=== PATIENT | female | born 1945 | race Hispanic/Latino ===

== ENCOUNTER 2024-03-12 14:42 | Emergency (ER) | payer OTHER ==
[2024-03-12] MEDS ORDERED: ONDANSETRON 4 MG/2 ML VIAL ONE (15:13)
[2024-03-12] MEDS ORDERED: NA CHLORIDE 0.9% 1,000 ML ONE (15:13)
[2024-03-12 15:44] LABS: Absolute Basophils 0.1 K/uL (0-0.5); Absolute Eosinophils 0.3 K/uL (0-0.5); Absolute Lymphocytes (CBC) 1.1 K/uL (0.7-4.9); Absolute Monocytes 0.5 K/uL (0.1-1.3); Absolute Neutrophil 7.2 K/uL (1.8-8.0); Basophils % 0.6 % (0-1.3); Eosinophils % 2.8 % (0-4.4); Hematocrit 35.2 % (36.0-45.0); Hemoglobin 11.9 g/dL (12.0-15.0); Lymphocytes % 12.2 % (15.3-44.8); MCHC 33.8 g/dL (32.0-36.0); MCV 88.8 fL (80-100); MPV 8.1 fL (7.6-11.3); Monocytes % 5.5 % (3.3-12.3); Neutrophils % 78.9 % (41.7-73.7); Nucleated Red Blood Cells % 0.1 % (0-0); Platelets 338 thou/uL (152-406); RBC Red Blood Cell Count 3.96 M/uL (3.86-4.86); Red Cell Distribution Width 13.5 % (12.1-15.2)
[2024-03-12 15:55] LABS: PT Prothrombin Time 12.4 SECONDS (9.4-12.5)
[2024-03-12 15:56] LABS: Protime INR 1.11
[2024-03-12 16:00] LABS: ALT/SGPT 18 U/L (13-56); AST/SGOT 17 U/L (15-37); Albumin 3.8 g/dL (3.4-5.0); Alkaline Phosphatase 86 U/L (45-117); Anion Gap 12.3 mEq/L (5.0-15.0); BUN Blood Urea Nitrogen 20 mg/dL (7-18); Bicarbonate 24 mEq/L (21-32); Bilirubin Total 0.3 mg/dL (0.2-1.0); Creatine Phosphokinase 36 U/L (26-192); Globulin 3.9 g/dL (2.3-3.5); Glomerular Filtration Rate 38 ml/min (=/>90); Glucose Level 102 mg/dL (74-106); Lipase 57 U/L (13-75); Magnesium 1.6 mg/dL (1.6-2.4); NT PRO-BNP 349 pg/mL (<450); Potassium 4.3 mEq/L (3.5-5.1); Protein, Total 7.7 g/dL (6.4-8.2); Sodium Level 132 mEq/L (136-145); Troponin High Sensitivity 5.5 pg/mL (<58.9)
[2024-03-12 16:01] LABS: Bilirubin Direct < 0.2 mg/dL (0-0.2); Bilirubin Indirect, Calculated 0.1 mg/dL (0.2-0.8)
[2024-03-12] MEDS ORDERED: FAMOTIDINE 20 MG/2 ML VIAL IV ONE (16:02)
[2024-03-12 16:12] LABS: SARS-CoV-2 Antigen CONTROL BLUE LINE VIS/BG OK; SARS-CoV-2 Antigen Rapid Res Negative (Negative)
--- NOTE | 2024-03-12 16:18 | RAD REPORT ---
EXAM DESCRIPTION: RAD - Chest Single View - 03/12/2024 4:06 pm CLINICAL HISTORY: nausea vomiting COMPARISON: No comparisons FINDINGS: Lines: None. Lungs: No evidence of edema or pneumonia. Pleural: No significant pleural effusions or pneumothorax. Cardiac: The heart size is within normal limits. Mediastinum: Within normal limits. Bones: No acute fractures. Other: None IMPRESSION: No acute cardiopulmonary disease.
--- NOTE | 2024-03-12 18:30 | RAD REPORT ---
EXAM DESCRIPTION: CTAbdomen Pelvis Wo Contrast - 03/12/2024 6:05 pm CLINICAL HISTORY: ABD PAIN COMPARISON: CT ABD PELVIS W CONTRAST dated 03/04/2015 TECHNIQUE: CT of the abdomen and pelvis was performed. All CT scans are performed using dose optimization technique as appropriate and may include automated exposure control or mA/KV adjustment according to patient size. FINDINGS: Lower chest: Dependent atelectasis . Coronary calcifications. Aortic valve calcifications. Mild circumferential thickened distal esophagus. Liver: No acute abnormality or suspicious lesions. Biliary: No biliary ductal dilatation. Stomach: No significant focal abnormality. Duodenum: No significant focal abnormality. Pancreas: No significant abnormality. Spleen: No significant abnormality. Adrenal: No suspicious lesions. Kidney/ureter: No hydronephrosis. No renal calculi. Retroperitoneum: No retroperitoneal adenopathy. Vascular: No aneurysm. Atherosclerotic changes. Bowel: No significant focal abnormality. Normal appendix. Peritoneum: No ascites or free air. Tiny fat containing umbilical hernia. Bladder: Grossly unremarkable. Reproductive: Small calcified uterine fibroid. Bones: No acute fracture. Multilevel degenerative changes are present in the spine. Other: n/a IMPRESSION: No acute intra-abdominal or pelvic finding.
--- NOTE | 2024-03-12 18:33 | EDPHYS ---
Physician Documentation [facility] Name: Arin Mena Age: 78 yrs Sex: Female : 1945 Arrival Date: 03/12/2024 Time: 14:42 Bed 7 Private MD: ED Physician Hilario Welch HPI: 03/12 15:57 This 78 yrs old Female presents to ER via EMS with complaints of brianna Nausea/Vomiting. 15:57 The patient presents to the emergency department with nausea, vomiting, that is brianna intermittent. Onset: The symptoms/episode began/occurred just prior to arrival. Possible causes: unknown. The symptoms are aggravated by nothing. The symptoms are alleviated by nothing. Associated signs and symptoms: Pertinent positives: abdominal pain, nausea, vomiting. Severity of symptoms: At their worst the symptoms were mild in the emergency department the symptoms have improved mildly. The patient has experienced similar episodes in the past, a few times. Historical: - Allergies: 14:52 No Known Allergies; dd2 - Home Meds: 14:52 Metformin Oral [Active]; memantine oral [Active]; dd2 - PMHx: 14:52 Diabetes mellitus; Hypertensive disorder; Dementia; Hypercholesterolemia; Coronary dd2 atherosclerosis; - PSHx: 14:52 CARDIAC STENT; dd2 - Immunization history:: Adult Immunizations unknown. - Infectious Disease History:: Denies. - Social history:: Smoking status: Patient denies any tobacco usage or history of. ROS: 15:58 Constitutional: Negative for fever, chills, and weight loss, Eyes: Negative for injury, brianna pain, redness, and discharge, ENT: Negative for injury, pain, and discharge, Neck: Negative for injury, pain, and swelling, Cardiovascular: Negative for chest pain, palpitations, and edema, Respiratory: Negative for shortness of breath, cough, wheezing, and pleuritic chest pain, Back: Negative for injury and pain, : Negative for injury, bleeding, discharge, and swelling, MS/Extremity: Negative for injury and deformity, Skin: Negative for injury, rash, and discoloration, Neuro: Negative for headache, weakness, numbness, tingling, and seizure, Psych: Negative for depression, anxiety, suicide ideation, homicidal ideation, and hallucinations, Allergy/Immunology: Negative for hives, rash, and allergies, Endocrine: Negative for neck swelling, polydipsia, polyuria, polyphagia, and marked weight changes, Hematologic/Lymphatic: Negative for swollen nodes, abnormal bleeding, and unusual bruising, 15:58 Abdomen/GI: Positive for abdominal pain, nausea and vomiting, Exam: 15:58 Constitutional: This is a well developed, well nourished patient who is awake, alert, brianna and in no acute distress. Head/Face: Normocephalic, atraumatic. Eyes: Pupils equal round and reactive to light, extra-ocular motions intact. Lids and lashes normal. Conjunctiva and sclera are non-icteric and not injected. Cornea within normal limits. Periorbital areas with no swelling, redness, or edema. ENT: Nares patent. No nasal discharge, no septal abnormalities noted. Tympanic membranes are normal and external auditory canals are clear. Oropharynx with no redness, swelling, or masses, exudates, or evidence of obstruction, uvula midline. Mucous membranes moist. Neck: Trachea midline, no thyromegaly or masses palpated, and no cervical lymphadenopathy. Supple, full range of motion without nuchal rigidity, or vertebral point tenderness. No Meningismus. Chest/axilla: Normal chest wall appearance and motion. Nontender with no deformity. No lesions are appreciated. Cardiovascular: Regular rate and rhythm with a normal S1 and S2. No gallops, murmurs, or rubs. Normal PMI, no JVD. No pulse deficits. Respiratory: Lungs have equal breath sounds bilaterally, clear to auscultation and percussion. No rales, rhonchi or wheezes noted. No increased work of breathing, no retractions or nasal flaring. Abdomen/GI: Soft, non-tender, with normal bowel sounds. No distension or tympany. No guarding or rebound. No evidence of tenderness throughout. Back: No spinal tenderness. No costovertebral tenderness. Full range of motion. Female : Normal external genitalia. Skin: Warm, dry with normal turgor. Normal color with no rashes, no lesions, and no evidence of cellulitis. MS/ Extremity: Pulses equal, no cyanosis. Neurovascular intact. Full, normal range of motion. Neuro: Awake and alert, GCS 15, oriented to person, place, time, and situation. Cranial nerves II-XII grossly intact. Motor strength 5/5 in all extremities. Sensory grossly intact. Cerebellar exam normal. Normal gait. Psych: Awake, alert, with orientation to person, place and time. Behavior, mood, and affect are within normal limits. 15:58 ECG was reviewed by the Attending Physician. Vital Signs: 14:50 BP 160 / 80; Pulse 75; Resp 18; Temp 97.9; Pulse Ox 98% ; dd2 16:00 BP 153 / 74; Pulse 80; Resp 15; Pulse Ox 99% ; dd2 17:00 BP 138 / 63; Pulse 80; Resp 16; Pulse Ox 99% ; ko1 18:00 BP 139 / 66; Pulse 78; Resp 18; Pulse Ox 98% ; ko1 MDM: 14:49 Patient medically screened. brianna 15:59 Differential diagnosis: Nonspecific abd pain, gastritis, cholecystitis, pancreatitis, brianna appendicitis, diverticulitis, viral gastroenteritis, gastroenteritis. Data reviewed: vital signs, nurses notes, EMS record, lab test result(s), EKG, radiologic studies, CT scan, plain films. Consideration of Admission/Observation Escalation of care including admission/observation considered. I considered the following discharge prescriptions or medication management in the emergency department Medications were administered in the Emergency Department. See MAR. Independent interpretation of the following test(s) in the Emergency Department EKG: See my EKG interpretation above. Test considered but Not performed: Ultrasound NO AND USG. Care significantly affected by the following chronic conditions: Diabetes, Hypertension, Obesity, CAD, DEMENTIA, HIGH CHOLESTEROL. 03/12 15:39 Order name: Basic Metabolic Panel; Complete Time: 17:10 EDMS 03/12 15:39 Order name: Liver (Hepatic) Function; Complete Time: 17:10 EDMS 03/12 15:39 Order name: Creatine Phosphokinase; Complete Time: 17:10 EDMS 03/12 15:39 Order name: Troponin High Sensitivity; Complete Time: 17:10 EDMS 03/12 15:39 Order name: NT PRO-BNP; Complete Time: 17:10 EDMS 03/12 15:39 Order name: Magnesium; Complete Time: 17:10 EDMS 03/12 15:39 Order name: Lipase; Complete Time: 17:10 EDMS 03/12 15:39 Order name: SARS-COV-2 Antigen Rapid; Complete Time: 17:10 EDMS 03/12 15:39 Order name: CBC with Automated Diff; Complete Time: 15:48 EDMS 03/12 15:40 Order name: Protime (+INR); Complete Time: 17:10 [facility] 08 15:40 Order name: Influenza Screen (A ; Complete Time: 18:06 [facility] 08/ 15:15 Order name: Chest Single View; Complete Time: 17:10 [facility] 08/06 15:49 Order name: CT Abd/Pelvis - Without Contrast; Complete Time: 18:32 [facility] 08 15:03 Order name: Cardiac monitoring; Complete Time: 15:08 [facility] 03/12 15:03 Order name: EKG - Nurse/Tech; Complete Time: 16:15 [facility] 03/12 15:03 Order name: IV Saline Lock; Complete Time: 15:08 [facility] 08 15:03 Order name: Labs collected and sent; Complete Time: 15:08 [facility] 08 15:03 Order name: O2 Per Protocol; Complete Time: 15:07 [facility] 08 15:03 Order name: O2 Sat Monitoring; Complete Time: 15:07 [facility] 03/12 17:11 Order name: PO challenge; Complete Time: 18:46 [facility] 03/12 18:13 Order name: Misc. Order: get ua please; Complete Time: 18:46 [facility] EC:58 Rate is 83 beats/min. Rhythm is regular. QRS Hudgins is Normal. GA interval is normal. QRS brianna interval is normal. QT interval is normal. No Q waves. T waves are Normal. No ST changes noted. Clinical impression: NSR w/ Non-specific ST/T Changes and No evidence of ischemia. Interpreted by me. Reviewed by me. Administered Medications: 15:33 Drug: NS 0.9% IV 1000 ml IV at 1 bolus Per protocol; 1000 mL bolus Route: IV; Rate: 1 dd2 bolus; Site: right antecubital; 15:48 Follow up: Response: No adverse reaction dd2 17:00 Follow up: Response: No adverse reaction; IV Status: Completed infusion; IV Intake: ko1 1000ml 15:33 Drug: Ondansetron IVP 4 mg IVP once; over 2 minutes Route: IVP; Site: right antecubital;dd2 15:48 Follow up: Response: No adverse reaction dd2 16:12 Drug: Famotidine IVP 20 mg IVP once; dilute with 10 mL 0.9% NaCl; give over 2 minutes dd2 Route: IVP; Site: right antecubital; 16:27 Follow up: Response: No adverse reaction dd2 16:27 Follow up: Response: No adverse reaction ko1 Disposition Summary: 03/12/24 18:32 Discharge Ordered Notes: Location: Home brianna Problem: new brianna Symptoms: have improved brianna Condition: Stable brianna Diagnosis - Vomiting brianna - Anxiety disorder, unspecified brianna - Gastro-esophageal reflux disease with esophagitis brianna Followup: brianna - With: Private Physician - When: 2 - 3 days - Reason: Recheck today's complaints, Continuance of care, Re-evaluation by your physician Discharge Instructions: - Discharge Summary Sheet brianna - Abdominal Pain, Adult brianna - Esophagitis brianna - Gastroesophageal Reflux Disease, Adult brianna - Vomiting, Adult brianna - Managing Anxiety, Adult brianna Forms: - Medication Reconciliation Form brianna - Antibiotic Education brianna - Prescription Opioid Use brianna - Patient Portal Instructions brianna - Leadership Thank You Letter [facility] Prescriptions: - ondansetron 4 mg Oral Tablet,disintegrating - take 1 tablet ORAL route every 8-12 hours for 5 days as needed for nausea and brianna vomiting; 20 tablet; Refills: 0, Product Selection Permitted - Pepcid 20 mg Oral tablet - take 1 tablet ORAL route every 12 hours for 21 days; 42 tablet; Refills: 0, brianna Product Selection Permitted Signatures: Dispatcher [employer] EDHilario Siddiqui MD MD cha DAVIS, DIANA, RN RN dd2 Krista Camarena RN ko1 Corrections: (The following items were deleted from the chart) 17:05 17:05 SARS-COV-2 Antigen Rapid+I.LAB.BRZ ordered. EDMS EDMS 17:05 17:05 Chest Single View+RAD.RAD.BRZ ordered. EDMS EDMS 17:06 17:06 Abdomen Pelvis Wo Con+CT.RAD.BRZ ordered. EDMS EDMS 17:36 17:05 CBC+H.LAB.BRZ ordered. EDMS EDMS 17:36 17:05 Urinalysis+U.LAB.BRZ ordered. EDMS EDMS 17:37 17:05 BASIC METABOLIC PANEL+C.LAB.BRZ ordered. EDMS EDMS 17:37 17:05 HEPATIC FUNCTION+C.LAB.BRZ ordered. EDMS EDMS 17:37 17:05 MAGNESIUM+C.LAB.BRZ ordered. EDMS EDMS 17:37 17:05 PROBNP+C.LAB.BRZ ordered. EDMS EDMS 17:37 17:05 PROTIME (+INR)+COAG.LAB.BRZ ordered. EDMS EDMS 17:37 17:05 Troponin High Sensitivity+C.LAB.BRZ ordered. EDMS EDMS 17:37 17:05 CREATINE PHOSPHOKINASE+C.LAB.BRZ ordered. EDMS EDMS 17:37 17:05 LIPASE+C.LAB.BRZ ordered. EDMS EDMS 17:38 17:05 Influenza Screen (A \T\ B)+BA.LAB.BRZ ordered. EDMS EDMS
--- NOTE | 2024-03-12 18:33 | ER ---
Nurse's Notes [facility] Name: Arin Mena Age: 78 yrs Sex: Female : 1945 Arrival Date: 03/12/2024 Time: 14:42 Bed 7 Private MD: Diagnosis: Vomiting;Anxiety disorder, unspecified;Gastro-esophageal reflux disease with esophagitis Presentation: 03/12 14:50 Chief complaint: EMS states: NAUSEA AND VOMITING AFTER STARTING ANTIBIOTIC. Coronavirus dd2 screen: At this time, the client does not indicate any symptoms associated with coronavirus-19. Ebola Screen: No symptoms or risks identified at this time. 14:50 Method Of Arrival: EMS: [facility] dd2 14:50 Initial Sepsis Screen: Does the patient meet any 2 criteria? No. Patient's initial dd2 sepsis screen is negative. Does the patient have a suspected source of infection? No. Patient's initial sepsis screen is negative. Risk Assessment: Do you want to hurt yourself or someone else? Patient reports no desire to harm self or others. Onset of symptoms was March 12, 2024. 14:50 Acuity: HARI 3 dd2 14:50 Care prior to arrival: Medication(s) given: zofran 4 mg, IV initiated. 18 GA, in the dd2 right antecubital area, Glucose check: 115. Triage Assessment: 14:52 General: Appears uncomfortable, Behavior is cooperative. Pain: Complains of pain in top dd2 of head. GI: Reports vomiting. 14:52 GI: Reports nausea. dd2 Historical: - Allergies: 14:52 No Known Allergies; dd2 - Home Meds: 14:52 Metformin Oral [Active]; memantine oral [Active]; dd2 - PMHx: 14:52 Diabetes mellitus; Hypertensive disorder; Dementia; Hypercholesterolemia; Coronary dd2 atherosclerosis; - PSHx: 14:52 CARDIAC STENT; dd2 - Immunization history:: Adult Immunizations unknown. - Infectious Disease History:: Denies. - Social history:: Smoking status: Patient denies any tobacco usage or history of. Screenin:00 [facility] ED Fall Risk Assessment (Adult) History of falling in the last 3 months, dd2 including since admission No falls in past 3 months (0 pts) Confusion or Disorientation Yes (5 pts) Intoxicated or Sedated No (0 pts) Impaired Gait No (0 pts) Mobility Assist Device Used No (0 pt) Altered Elimination No (0 pt) Score/Fall Risk Level 3 or more points = High Risk Oriented to surroundings, Maintained a safe environment, Educated pt \T\ family on fall prevention, incl call for assistance when getting out of bed, Assessed \T\ reinforced patient's understanding of fall precautions, Hourly rounding (assess needs \T\ fall precautionary measures) done. Abuse screen: Denies threats or abuse. Nutritional screening: No deficits noted. Tuberculosis screening: No symptoms or risk factors identified. Assessment: 16:00 General: Appears in no apparent distress. Behavior is calm, cooperative. Pain: Denies dd2 pain. Neuro: Oriented to person, place, situation. Cardiovascular: No deficits noted. Respiratory: No deficits noted. GI: Abdomen is non-distended, Bowel sounds present X 4 quads. Reports nausea, vomiting. : No deficits noted. EENT: No deficits noted. Derm: No deficits noted. Musculoskeletal: No deficits noted. Vital Signs: 14:50 BP 160 / 80; Pulse 75; Resp 18; Temp 97.9; Pulse Ox 98% ; dd2 16:00 BP 153 / 74; Pulse 80; Resp 15; Pulse Ox 99% ; dd2 17:00 BP 138 / 63; Pulse 80; Resp 16; Pulse Ox 99% ; ko1 18:00 BP 139 / 66; Pulse 78; Resp 18; Pulse Ox 98% ; ko1 ED Course: 14:49 Patient arrived in ED. dd2 14:49 Hilario Welch MD is Attending Physician. [facility] 14:50 ONEIDA HOLDEN RN is Primary Nurse. dd2 14:52 Triage completed. dd2 14:52 Arm band placed on right wrist. Patient placed in an exam room, on a stretcher, on dd2 pulse oximetry. 16:00 Patient has correct armband on for positive identification. Bed in low position. Call dd2 light in reach. Side rails up X2. Provided Education on: CALL LIGHT, MEDICATION, FALL RISK. 16:00 Client placed on continuous cardiac and pulse oximetry monitoring. NIBP monitoring dd2 applied. Door closed. Noise minimized. Warm blanket given. 16:00 No provider procedures requiring assistance completed. Initial lab(s) drawn, by me, dd2 sent to lab. EKG done, by ED staff, reviewed by Hilario Welch MD COVID swab sent to lab. Flu and/or RSV swab sent to lab. Maintain EMS IV. Dressing intact. Good blood return noted. Site clean \T\ dry. Gauge \T\ site: 18 G RAC. 16:07 Chest Single View In Process Unspecified. EDMS 16:16 Influenza Screen (A Sent. dd2 16:36 Cleaned of incontinence. Linen changed. ko1 18:07 CT Abd/Pelvis - Without Contrast In Process Unspecified. EDMS 18:44 IV discontinued, intact, bleeding controlled, No redness/swelling at site. Pressure ko1 dressing applied. Administered Medications: 15:33 Drug: NS 0.9% IV 1000 ml IV at 1 bolus Per protocol; 1000 mL bolus Route: IV; Rate: 1 dd2 bolus; Site: right antecubital; 15:48 Follow up: Response: No adverse reaction dd2 17:00 Follow up: Response: No adverse reaction; IV Status: Completed infusion; IV Intake: ko1 1000ml 15:33 Drug: Ondansetron IVP 4 mg IVP once; over 2 minutes Route: IVP; Site: right antecubital;dd2 15:48 Follow up: Response: No adverse reaction dd2 16:12 Drug: Famotidine IVP 20 mg IVP once; dilute with 10 mL 0.9% NaCl; give over 2 minutes dd2 Route: IVP; Site: right antecubital; 16:27 Follow up: Response: No adverse reaction dd2 16:27 Follow up: Response: No adverse reaction ko1 Medication: 16:36 VIS not applicable for this client. ko1 Intake: 17:00 IV: 1000ml; Total: 1000ml. ko1 Outcome: 18:32 Discharge ordered by MD. reed 18:44 Discharged to home via wheelchair, with family, ko1 18:44 Condition: improved 18:44 Discharge instructions given to patient, family, Instructed on discharge instructions, follow up and referral plans. medication usage, Demonstrated understanding of instructions, follow-up care, medications, 18:47 Patient left the ED. ko1 Signatures: Dispatcher [employer] Hilario Alva MD MD cha Oliver, Kathy, RN RN ko1 ONEIDA HOLDEN RN RN dd2
[2024-03-13 05:49] VITALS: TEMP 97.9
[2024-03-13 05:58] VITALS: BP 139/66; O2SAT 98
== END 2024-03-12 18:47 | disposition home or self-care (01) ==
LOC: ER 14:42
DX: F41.9 Anxiety disorder, unspecified (principal); K21.00 Gastro-esophageal reflux disease with esophagitis, without bleeding; Z11.52 Encounter for screening for COVID-19
CPT/HCPCS: 85025; 80048; 36415; 83735; 82550; 85610; 80076; 84484; 83690; 83880; 87804 ×2; 74176; 71045; 87811; J2405; J7030; 93005